=== PATIENT | female | born 1955 | race Caucasian/White ===

== ENCOUNTER 2016-08-29 18:02 | Inpatient (IN) | payer BC ==
[~2016-08-29] VITALS: Ht 157.5 cm; Wt 79.3 kg
--- NOTE | ~2016-08-29 | EKG ---
[place] [address] [facility] [address] [place] [address] ELECTROCARDIOGRAM REPORT Name: KEESHA MUSTAFA Room #: 431-P ADM IN M.R.#: [id number] Admission: 08/29/16 Attend Phys: Derek Kay Discharge: Date of : 53 Report #: [id number] THIS REPORT FOR: //name// [facility] ED Test Date: 2016-08-29 Test Time: 19:26:15 Pat Name: KEESHA MUSTAFA Department: Room: [facility] Gender: F Director [place] [facility] [place] 1955 Requested By: Kory Payne Order Number: [id number] MD: Javon Rollins Measurements Intervals [place] Rate: 68 P: 37 MA: 152 QRS: -20 QRSD: 95 T: 13 QT: 434 QTc: 462 Interpretive Statements Sinus rhythm Poor R wave progression No previous ECG available for comparison Electronically Signed On 08-31-2016 11:32:52 CDT by Javon Rollins [email or web address] <ELECTRONICALLY SIGNED> By: Javon Rollins MD, [facility] 08/31/16 1132 1926 25 Javon Rollins MD, FACC /EPI
--- NOTE | ~2016-08-29 | H ---
[facility] [place] [address] HISTORY AND PHYSICAL Name: KEESHA MUSTAFA Room #: 431-P [facility] IN M.R.#: [id number] Admission: 08/29/16 Attend Phys: Derek Kay Discharge: 08/31/16 Date of : 53 Report #: [id number] THIS REPORT FOR: //name// CC: Yuniel Kay DATE OF SERVICE: 08/29/2016 ATTENDING PHYSICIAN: Derek Kay M.D. PRIMARY CARE PHYSICIAN: Yuniel Dennis M.D. CHIEF COMPLAINT: Nausea, vomiting and diarrhea. HISTORY OF PRESENT ILLNESS: The patient is a 61-year-old female who came to the ER complaining of nausea, vomiting and diarrhea. She says this started after eating some [place] food about 8 days ago. She thinks her ate the same food, and he has not had any similar symptoms. She has been vomiting multiple times a day and having at least 3-4 stools per day. She says the stools are very loose and brown. She has not seen any blood in her emesis or her stools. She has been having some intermittent chills, but she has not been checking her temperature. She has been keeping minimal fluid down. She has not been wanting to try to take any of her medications because she is afraid she will just vomit them back up. She was prescribed Augmentin on 08/13 for an ear and sinus infection, but she only took a few doses of it because she thought it was making her worse. She also was prescribed prednisone at that time; she only took it for a day. She has been having some related abdominal pain and cramps, mostly in her lower quadrant. She was taking some Imodium. She did see her GI physician 4 days ago and did collect some stool samples, but those have not yet been resulted to her. She has also been taking some oral Zofran without much relief. She has had a prior EGD done, which has shown a large hiatal hernia. Then back in May, she also had an abdominal ultrasound done which was negative as well. PAST MEDICAL HISTORY: Large hiatal hernia, GERD, anxiety, depression and restless legs syndrome. PAST SURGICAL HISTORY: Appendectomy and ankle repair. ALLERGIES: None. HOME MEDICATIONS: Colestipol 1 g daily, Zofran oral p.r.n., BuSpar 15 mg b.i.d., Protonix 40 mg b.i.d., Requip 1 mg at bedtime, Lipitor 20 mg at bedtime, valacyclovir 1000 mg daily, prednisone 10 mg daily, Ranitidine 300 mg daily and citalopram 40 mg [address] [address] HISTORY AND PHYSICAL Name: KEESHA MUSTAFA Room #: 431-P [facility] IN M.R.#: [id number] Admission: 08/29/16 Attend Phys: Derek Kay Discharge: 08/31/16 Date of : 53 Report #: [id number] SOCIAL HISTORY: The patient lives at home with her spouse who has Lewy body dementia, so she is his primary resident care assistant. She denies any tobacco, alcohol or drug use. FAMILY HISTORY: Her father had stomach cancer and at the age of 95. Her mother of pneumonia at the age of 84. There are some other family members on her mom's side who have had stroke. REVIEW OF SYSTEMS: A 12-point review of systems was reviewed with the patient; otherwise, negative unless stated in the HPI. PHYSICAL EXAMINATION: GENERAL: The patient is an alert, well-developed female, in no acute distress. VITAL SIGNS: Temperature 36.8, heart rate 54, respirations 18, blood pressure is 115/66 and oxygen is 95% on room air. HEENT: PERRLA. Sclerae are nonicteric. Oral mucosa is pink and moist. NECK: Supple. No JVD noted. CARDIOVASCULAR: Normal S1 and S2. No murmurs, rubs or gallops. RESPIRATORY: Breath sounds are clear bilaterally. No wheezing or rhonchi. Breathing is nonlabored. ABDOMEN: Soft and nondistended. She does have diffuse tenderness. No guarding or rigidity. VASCULAR: No edema noted. Pedal pulses are 2+. NEUROLOGIC: The patient is awake, alert and oriented x 3. Speech is clear. She is moving all extremities equally. No focal deficits noted. PSYCHIATRIC: The patient is calm and cooperative. LABORATORY AND DIAGNOSTIC DATA: WBC of 6.4, hemoglobin 12.4 and platelets 286. Sodium 137, potassium 2.7, BUN 5, creatinine 0.9 and glucose 146. LFTs are within normal limits. Troponin is negative. Albumin is 2.7. Chest x-ray is negative. EKG showing sinus rhythm. ASSESSMENT AND PLAN: 1. Intractable nausea, vomiting and diarrhea. This has been going on for over a week, so it is doubtful that this is a viral gastroenteritis. We will further evaluate with a CT scan of the abdomen this morning, and based on the CT findings, we will decide if gastroenterology needs to be consulted. We will try to collect stool specimen for Clostridium difficile, since she has been on recent antibiotic, although she did not complete them. 2. Hypokalemia. This will be replaced. Follow labs. 3. Anxiety and depression. This is stable, continue home meds. 4. Deep vein thrombosis prophylaxis. Place sequential compression devices. [facility] [address] [place] [address] HISTORY AND PHYSICAL Name: KEESHA MUSTAFA Room #: 431-P DIS IN M.R.#: [id number] Admission: 08/29/16 Attend Phys: Derek Kay Discharge: 08/31/16 Date of : 53 Report #: [id number] We will continue to follow the patient closely throughout the hospitalization and make changes based on clinical status. <ELECTRONICALLY SIGNED> By: LATRICIA Ruffin 09/02/16 0608 [id number] [id number] LATRICIA Ruffin /nt
[2016-08-29 18:09] VITALS: BP 115/66
[2016-08-29 19:03] LABS: ABSOLUTE NEUTROPHILS 4.6 thou/uL (1.4-8.2); BASOPHILS 0.9 % (0.0-2.0); EOSINOPHILS 2.8 % (0.0-3.0); HEMATOCRIT 36.4 % (37.0-47.0); HEMOGLOBIN 12.4 gm/dL (12.0-15.0); LYMPHOCYTES 14.5 % (24.0-44.0); MCH 31.8 pg (26.0-34.0); MCV 93.3 fL (80.0-100.0); MONOCYTES 9.1 % (1.0-8.0); PLATELET COUNT 286 thou/uL (150-400); POLYS 72.7 % (36.0-66.0); RDW 13.1 % (10.5-14.5); WBC 6.4 thou/uL (4.0-11.0)
[2016-08-29 19:04] LABS: MANUAL DIFF NO
[2016-08-29 19:15] LABS: ALBUMIN 2.7 g/dL (3.4-5.0); CALCIUM 8.3 mg/dL (8.5-10.1); CREATININE 0.9 mg/dL (0.6-1.0); TOTAL BILIRUBIN 0.4 mg/dL (<0.1-1.0)
[2016-08-29 19:19] LABS: POTASSIUM 2.7 mmol/L (3.5-5.1)
[2016-08-29] MEDS ORDERED: ZOFRAN ODT4 MG DISSOLVE (20:30)
[2016-08-29] MEDS ORDERED: BUSPIRONE HCL15 MG PO (20:30)
[2016-08-29] MEDS ORDERED: PANTOPRAZOLE SO40 M1 PO (20:30)
[2016-08-29] MEDS ORDERED: COLESTIPOL HCL1 G1 PO (20:30)
[2016-08-29] MEDS ORDERED: LIPITOR 20 MG T20 M1 PO (20:31)
[2016-08-29] MEDS ORDERED: RANITIDINE HCL300 MG PO (20:31)
[2016-08-29] MEDS ORDERED: CITALOPRAM HBR40 MG PO (20:31)
[2016-08-29] MEDS ORDERED: VALACYCLOVIR1000 MG PO (20:31)
[2016-08-29] MEDS ORDERED: PREDNISONE 10 M10 MG PO (20:31)
[2016-08-29] MEDS ORDERED: REQUIP 1 MG TABL1 M1 PO (20:31)
[2016-08-29 21:27] VITALS: BP 112/67
[2016-08-29 22:25] VITALS: BP 122/68
[2016-08-30 05:01] VITALS: BP 121/65
[2016-08-30 08:33] VITALS: BP 92/50
[2016-08-30 09:30] LABS: CALCIUM 8.1 mg/dL (8.5-10.1); CREATININE 0.8 mg/dL (0.6-1.0); MAGNESIUM 1.7 mg/dL (1.8-2.4)
[2016-08-30 16:28] VITALS: BP 94/59
[2016-08-30 16:30] VITALS: BP 99/56
[2016-08-30 16:35] VITALS: BP 100/57
[2016-08-30 20:30] VITALS: BP 121/69
[2016-08-31 04:30] VITALS: BP 127/66
[2016-08-31 08:26] VITALS: BP 112/64
[2016-08-31] MEDS ORDERED: FLAGYL500 MG PO (11:56)
[2016-08-31 12:07] VITALS: BP 112/64
== END 2016-08-31 13:52 | disposition home or self-care (01) | DRG 371 ==
LOC: ER 18:02 → EROBS 21:02 → 4E 21:28
PROVIDERS: Nurse Practitioner Acute Care; Physician Assistant
DX: A04.7 Enterocolitis due to Clostridium difficile (principal); E43 Unspecified severe protein-calorie malnutrition; E87.6 Hypokalemia; K21.9 Gastro-esophageal reflux disease without esophagitis; F41.9 Anxiety disorder, unspecified; F32.9 Major depressive disorder, single episode, unspecified; G25.81 Restless legs syndrome; Z80.0 Family history of malignant neoplasm of digestive organs; Z90.49 Acquired absence of other specified parts of digestive tract; Z79.899 Other long term (current) drug therapy; Z82.5 Family history of asthma and other chronic lower respiratory diseases; Z82.3 Family history of stroke
CPT/HCPCS: 10183